=== PATIENT | male | born 2005 | race Caucasian/White ===

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

== ENCOUNTER → 2024-08-06 15:57 | Outpatient (BNVA) | payer OTHER, SELFPAY | PROVIDERS: Family Provider Pediatrics Adolescent Medicine; PCP Pediatrics Adolescent Medicine; Visit Provider Family Medicine | DX: R51.9 Headache, unspecified (principal) | CPT/HCPCS: 87400 ==